=== PATIENT | female | born 1975 | race Caucasian/White ===

== ENCOUNTER 2018-07-03 16:05 | Emergency (ER) | payer MEDICAID ==
[~2018-07-03] VITALS: Ht 152.4 cm; Wt 81.8 kg
[~2018-07-03 16:05] MED LIST: NOCURR
[2018-07-03 17:01] LABS: BASOPHILS % (AUTO) 0.9 % (0.0-2.0); EOSINOPHILS % (AUTO) 1.5 % (1.0-6.0); LYMPHOCYTES # (AUTO) 3.3 K/uL (1.0-4.8); LYMPHOCYTES % (AUTO) 43.3 % (22.0-44.0); MEAN CORPUSCULAR VOLUME 89 fL (80-100); MONOCYTES # (AUTO) 0.3 K/uL (0.1-1.0); MONOCYTES % (AUTO) 3.8 % (2.0-9.0); NEUTROPHILS # (AUTO) 3.9 K/uL (1.8-7.7); NEUTROPHILS % (AUTO) 50.5 % (40.0-70.0); PLATELET COUNT (AUTO) 274 K/uL (150-450); RED BLOOD CELL COUNT(AUTO) 4.18 MIL/uL (4.00-5.20); RED CELL DISTRIBUTION WIDTH 13.1 % (11.5-14.5)
[2018-07-03 17:19] LABS: ANION GAP 7 mmol/L (8-16); CALCIUM, TOTAL 8.9 mg/dL (8.8-10.5); CARBON DIOXIDE 29 mmol/L (22-29); CHLORIDE 102 mmol/L (98-107); CREATININE 0.71 mg/dL (0.60-1.30); GLOMERULAR FILTR. RATE CALC > 60 mL/min (>60); GLUCOSE,RANDOM 130 mg/dL (70-110); POTASSIUM 3.8 mmol/L (3.5-5.1); SODIUM SERUM 138 mmol/L (136-145); UREA NITROGEN, BLOOD 15 mg/dL (7-18)
[2018-07-03 17:25] LABS: ALANINE AMINOTRANSFERASE 118 U/L (12-78); ALBUMIN 3.5 g/dL (3.4-5.0); ALKALINE PHOSPHATASE 89 U/L (46-116); ASPARTATE AMINOTRANSFERASE 75 U/L (15-37); BILIRUBIN,TOTAL 0.2 mg/dL (0.1-1.0); TOTAL PROTEIN, SERUM 6.7 g/dL (6.4-8.2)
[2018-07-03 17:49] LABS: APPEARANCE,URINE CLEAR (CLEAR); BILIRUBIN,URINE NEGATIVE (NEGATIVE); GLUCOSE, URINE (UA) NEGATIVE (NEGATIVE); KETONES,URINE NEGATIVE (NEGATIVE); LEUKOCYTE ESTERASE ,URINE NEGATIVE (NEGATIVE); NITRATE,URINE NEGATIVE (NEGATIVE); OCCULT BLOOD,URINE LARGE (NEGATIVE); PROTEIN,URINE NEGATIVE (NEGATIVE); UROBILINOGEN,URINE 0.2 mg/dL (<=1.0)
[2018-07-03 18:03] LABS: BACTERIA,URINE Rare /HPF (None Seen); RBC,URINE 26-50 /HPF (0-2); SQUAMOUS EPITHELIAL CELL,UR Moderate /LPF (None Seen)
[2018-07-03] MEDS ORDERED: HYDROCODONE/ACETAMINOPHEN 5-325 MG TABLET PO ONE (18:15)
[2018-07-03] MEDS ORDERED: KETOROLAC TROMETHAMINE 30 MG/ML VIAL IVP ONE (19:00)
[2018-07-03 19:31] VITALS: BP 135/85
== END 2018-07-03 19:53 | disposition home or self-care (01) ==
LOC: EMS 16:07
DX: R51 Headache (principal)
CPT/HCPCS: 36415; 70450; 80053; 81001; 84703; 85025; 96374; 99285; J1885

== ENCOUNTER 2022-10-06 20:50 | Emergency (ER) | payer OTHER ==
[~2022-10-06] VITALS: Ht 152.4 cm; Wt 77.3 kg
[2022-10-06 22:29] LABS: BASOPHILS % (AUTO) 0.5 % (0.0-2.0); EOSINOPHILS % (AUTO) 0.8 % (1.0-6.0); HEMATOCRIT 34.3 % (36-46); HEMOGLOBIN 11.8 g/dL (12.0-16.0); LYMPHOCYTES # (AUTO) 3.4 K/uL (1.0-4.8); MEAN CORPUSCULAR HEMOGLOBIN 30.3 pg (26.0-34.0); MEAN CORPUSCULAR HGB CONC 34.6 G/dL (31.0-37.0); MEAN CORPUSCULAR VOLUME 88 fL (80-100); MONOCYTES # (AUTO) 0.4 K/uL (0.1-1.0); MONOCYTES % (AUTO) 5.5 % (2.0-9.0); NEUTROPHILS # (AUTO) 3.9 K/uL (1.8-7.7); NEUTROPHILS % (AUTO) 50.2 % (40.0-70.0); PLATELET COUNT (AUTO) 244 K/uL (150-450); RED BLOOD CELL COUNT(AUTO) 3.91 MIL/uL (4.00-5.20); RED CELL DISTRIBUTION WIDTH 13.1 % (11.5-14.5)
[2022-10-06 22:40] LABS: ANION GAP 11 mmol/L (8-16); CALCIUM, TOTAL 8.9 mg/dL (8.8-10.5); CARBON DIOXIDE 25 mmol/L (22-29); CHLORIDE 104 mmol/L (98-107); CREATININE 0.69 mg/dL (0.60-1.30); GLOMERULAR FILTR. RATE CALC > 60 mL/min (>60); GLUCOSE,RANDOM 123 mg/dL (70-110); POTASSIUM 3.7 mmol/L (3.5-5.1); SODIUM SERUM 140 mmol/L (136-145); UREA NITROGEN, BLOOD 13 mg/dL (7-18)
[2022-10-06 22:41] LABS: B-TYPE NATRIURETIC PEPTIDE 62 pg/mL (0-100)
[2022-10-06 22:46] LABS: ALANINE AMINOTRANSFERASE 24 U/L (12-78); ALBUMIN 3.5 g/dL (3.4-5.0); ALKALINE PHOSPHATASE 75 U/L (46-116); ASPARTATE AMINOTRANSFERASE 17 U/L (15-37); BILIRUBIN,TOTAL 0.2 mg/dL (0.1-1.0); CREATINE KINASE, TOTAL ONLY 131 U/L (26-192); TOTAL PROTEIN, SERUM 6.7 g/dL (6.4-8.2)
[2022-10-06] MEDS ORDERED: FAMOTIDINE 10 MG/ML 2 ML VIAL IVP ONE (23:00)
[2022-10-06] MEDS ORDERED: MAG HYDROX/AL HYDROX/SIMETH 30 ML SUSP UDCUP PO ONE (23:00)
[2022-10-06] MEDS ORDERED: ACETAMINOPHEN 500 MG TABLET PO ONE (23:00)
[2022-10-06 23:52] VITALS: BP 147/85
== END 2022-10-07 01:59 | disposition home or self-care (01) ==
LOC: EMS 20:52
DX: R07.81 Pleurodynia (principal); I10 Essential (primary) hypertension; G43.909 Migraine, unspecified, not intractable, without status migrainosus
CPT/HCPCS: 99285; 96374; 71045; 80053; 82550; 83880; 84484; 84703; 85025; 85379; 36415; 93005; J3490